=== PATIENT | female | born 1995 | race Caucasian/White ===

== ENCOUNTER 2018-09-25 07:16 | Emergency (ER) | payer SELFPAY ==
--- NOTE | 2018-09-25 10:42 | ER Document Report ---
HPI - HPI Time Seen by Provider: 09/25/18 10:29 Pain Level: 1 Context: Patient is a 22-year-old female with no past medical history presents to the emergency department with a possible infected zit above the right eyebrow. Patient states she noticed about 4 days ago she was getting a zit. Patient states that 2 days later she attempted to pop it which did expel blood and white pus. States that she did serve fingernails to pop these sit. Patient states since then she has noticed more swelling around the area. Patient states that has not drained since then. Patient denies a history of abscesses, MRSA or staph infections. Patient denies history of diabetes. Patient denies swelling to her eyelid or change in her vision. States that these it did occur after having her eyebrows waxed. - REPRODUCTIVE Reproductive: DENIES: : Past Medical History - General Information source: Patient - Social History Smoking Status: Never Smoker Cigarette use (# per day): No Chew tobacco use (# tins/day): No Frequency of alcohol use: Rare Drug Abuse: None Lives with: Family Family History: None Patient has suicidal ideation: No Patient has homicidal ideation: No - Past Medical History Cardiac Medical History: Reports: None Pulmonary Medical History: Reports: None EENT Medical History: Reports: None Neurological Medical History: Reports: None Endocrine Medical History: Reports: None Renal/ Medical History: Reports: None. Denies: Hx Peritoneal Dialysis Malignancy Medical History: Reports: None GI Medical History: Reports: None Musculoskeletal Medical History: Reports None Skin Medical History: Reports None Psychiatric Medical History: Reports: None Traumatic Medical History: Reports: None Infectious Medical History: Reports: None Surgical Hx: Negative Vertical Provider Document - CONSTITUTIONAL Agree With Documented VS: Yes Exam Limitations: No Limitations General Appearance: No Apparent Distress - INFECTION CONTROL TRAVEL OUTSIDE OF THE [place] IN LAST 30 DAYS: No - HEENT HEENT: Atraumatic, Normocephalic Notes: Patient has a dried scab noted above the right medial eyebrow with mild surrounding erythema edema. No induration. No drainage noted. - RESPIRATORY Respiratory: Breath Sounds Normal, No Respiratory Distress - CARDIOVASCULAR Cardiovascular: Regular Rate, Regular Rhythm - GI/ABDOMEN Gastrointestinal: Abdomen Soft, Abdomen Non-Tender - NEURO Level of Consciousness: Awake, Alert, Appropriate - DERM Integumentary: Warm, Dry, No Rash Course - Re-evaluation Re-evalutation: 09/25/18 10:39 Does appear that patient has a zit that potentially got infected after she attempted to pop it with her fingers. I will place the patient on Keflex. D iscussed with the patient to return for increasing redness, drainage, fever or any other concerning signs or symptoms. - Vital Signs Vital signs: Temp Pulse Resp BP Pulse Ox 97.3 F 70 16 144/82 H 100 09/25/18 07:21 09/25/18 07:21 09/25/18 07:21 09/25/18 07:21 09/25/18 07:21 Discharge - Discharge Clinical Impression: Open wound, face, without complication Qualifiers: Encounter type: initial encounter Qualified Code(s): S01.80XA - Unspecified open wound of other part of head, initial encounter Condition: Stable Disposition: HOME, SELF-CARE Additional Instructions: Today you were seen in the emergency department for a possible infected pimple. Does appear that the area may be developing an infection in which I will place you on Keflex for. Keflex is an antibiotic that you will take for its entire course. Please use warm compresses to the site and use Tylenol or ibuprofen as needed for pain. Please return to the emergency department for worsening of symptoms to include increased swelling, increased redness, drainage, fever or any other concerning signs or symptoms. Prescriptions: Cephalexin Monohydrate [Keflex 500 mg Capsule] 500 mg PO QID 7 Days capsule
[2018-09-25] MEDS ORDERED: CEPHALEXIN 500 MG CAPSULE PO ONE (10:43)
[2018-09-25 10:52] VITALS: BP 127/73
== END 2018-09-25 10:54 | disposition home or self-care (01) ==
LOC: ER 07:16
DX: S01.80XA Unspecified open wound of other part of head, initial encounter (principal); X58.XXXA Exposure to other specified factors, initial encounter
CPT/HCPCS: 99283